=== PATIENT | female | born 1960 | race Caucasian/White ===

== ENCOUNTER 2024-06-22 17:39 | Emergency (ER) | payer OTHER, SELFPAY ==
[2024-06-22 17:39] VITALS: BMI 18.8
[2024-06-22 17:44] VITALS: BP 108/66
[2024-06-22 18:11] LABS: % Basophils 0.1 % (0-2); % Immature Granulocytes 0.7 % (0-0.5); % Monocytes 4.6 % (1.7-9.3); % Neutrophils 90.6 % (42.2-75.2); Absolute Immature Granulocytes 0.1 10^3/uL (0-0.05); Absolute Lymphocytes 0.7 10^3/uL (1.2-3.4); Absolute Monocytes 0.8 10^3/uL (0.1-0.6); Absolute Neutrophils 16.6 10^3/uL (1.4-6.5); Hematocrit 39.7 % (37.0-47.0); Hemoglobin 13.3 g/dL (12.0-16.0); Mean Corp Hgb Conc. 33.5 g/dL (33.0-37.0); Mean Corpuscular Hgb 27.1 pg (27.0-31.0); Mean Platelet Volume 9.9 fL (7.4-10.4); Nucleated Red Blood Cells % 0 %; Platelet Count 195 10^3/uL (130-400); Red Cell Dist. Width 12.7 % (11.5-14.5); White Blood Cell Count 18.4 10^3/uL (4.8-10.8)
[2024-06-22 18:36] LABS: ALT (SGPT) 17 U/L (0-35); AST (SGOT) 22 U/L (14-36); Acetaminophen < 10 ug/ml (10-30); Albumin 4.4 g/dl (3.5-5.0); Alkaline Phosphatase 60 U/L (38-126); Blood Urea Nitrogen 19 mg/dl (7-17); Calcium 8.7 mg/dl (8.4-10.2); Carbon Dioxide 26 mmol/L (22-30); Chloride 100 mmol/L (98-107); Glucose 132 mg/dl (70-99); Potassium 4.1 mmol/L (3.5-5.1); Sodium 138 mmol/L (135-145); Total Bilirubin 0.8 mg/dl (0.2-1.3); Total Protein 6.9 g/dl (6.3-8.2); eGFR > 60.00
[2024-06-22 19:25] LABS: COVID-19 Antigen Negative (Negative)
--- NOTE | 2024-06-22 20:16 | ED.GENMED ---
History of Present Illness
General
Chief Complaint: Change in Mental Status
Source: patient
Exam Limitations: none
Time Seen by Provider: 06/22/24 20:08
History of Present Illness
History of Present Illness:
See MDM
Past History
Past History
ED Past Medical History: Asthma (PAT), COPD and Other (Diverticulitis)
ED Past Surgical History: Other (Breast augmentation)
Social History
Tobacco: Smoker
Alcohol: Occasional
Personal:
Living: with family
Employment: Employed
Family History
Family History: Other (Noncontributory)
Phy Exam
Physical Exam
Physical Exam:
See MDM
Course
Orders/Labs/Results
Orders:
Orders
06/22/24 17:55
COVID-19 Antigen Urgent
Source: Nasal Swab
Complete Blood Count/With Diff Urgent
Comprehensive Metabolic Panel Urgent
Tylenol [Acetaminophen] Urgent
Influenza A+B Rapid Molecular Urgent
MELLISSA Source: Nasal Swab
Specimen Description:
06/22/24 20:15
0.9% Sodium Chloride 1000 ml [Nss] 1,000 ml IV BOLUS
Ketorolac [Toradol] 30 mg IV NOW STA
06/22/24 20:16
CR Chest Portable - 1 View Urgent
Comment:
Reason For Exam: SOB, cough
Reason Study Needs to be Portable: Unable to Transport
06/22/24 21:07
Urinalysis Reflex To Culture Urgent
Date Specimen was Collected: 06/22/24
Time Specimen was Collected: 21:05
Urine Microscopic Reflex Cult Urgent
06/22/24 21:52
Doxycycline [Vibramycin] 100 mg PO NOW STA
Abnormal Lab Results
06/22/24 06/22/24
17:55 21:07
WBC 18.4 H 10^3/uL
(4.8-10.8)
Abs Immat Gran (auto) 0.1 H 10^3/uL
(0-0.05)
Absolute Neuts (auto) 16.6 H 10^3/uL
(1.4-6.5)
Absolute Lymphs (auto) 0.7 L 10^3/uL
(1.2-3.4)
Absolute Monos (auto) 0.8 H 10^3/uL
(0.1-0.6)
Immature Gran % 0.7 H %
(0-0.5)
Neutrophils % 90.6 H %
(42.2-75.2)
Lymphocytes % 4.0 L %
(20.5-51.1)
BUN 19 H mg/dl
(7-17)
Glucose 132 H mg/dl
(70-99)
Urine Ketones Trace A
(Negative)
Ur Occult Blood Reflex 1+ A
(Negative)
Urine Bilirubin 1+ A
(Negative)
Leukocyte Esterase Rfl Trace A
(Negative)
Urine RBC 3-6 A /HPF
(0-2)
Urine Bacteria (Reflex) Few A
(Negative)
Urine Albumin (Reflex) 1+ A
(Neg - Trace)
Acetaminophen < 10 L ug/ml
(10-30)
06/22/24 17:55
06/22/24 17:55
Vital Signs
Initial and Last Documented VS:
Initial Vital Signs
Temp Pulse Resp BP Pulse Ox
99.2 F 118 20 108/66 100
06/22/24 17:44 06/22/24 17:44 06/22/24 17:44 06/22/24 17:44 06/22/24 17:44
Last Documented Vital Signs
Temp Pulse Resp BP Pulse Ox
99.2 F 118 20 111/62 97
06/22/24 17:44 06/22/24 17:44 06/22/24 17:44 06/22/24 21:00 06/22/24 21:02
MDM/Problems Addressed
Differential Diagnosis Includes:
HPI and MDM Narrative:
64-year-old female presenting for evaluation of cough and congestion. Patient is on her second course of antibiotics. Symptoms have been ongoing for the past week or so. She has been around sick children. Blood work was performed prior to my
evaluation and patient found to have a leukocytosis and nasal swab was positive for influenza. She is out of the Tamiflu window. Family also stating that she has been intermittently confused and curious about a possible UTI as well. Patient is
clinically dry. Will give IV fluids and obtain urinalysis
Physical exam
General: Well appearing and non-toxic
HEENT: protecting airway. Dry mucous membrane
Neck: appears supple
CV: No evidence of cyanosis. Regular rate and rhythm
Resp: No accessory muscle use. Lungs clear
Abd: Non-distended
Extremities: No deformities
Neuro: alert
Psych: Normal affect
Skin: Intact
Problems Addressed including Acute and Chronic Conditions affecting care:
1. Influenza
Acuity: acute
Prognosis: stable
Details: Discussed symptomatic care. She is out of Tamiflu window
2. Dehydration
Acuity: acute
Prognosis: stable
Details: Will give IV fluids
Updates
Chest x-ray concerning for pneumonia. On reassessment, patient feeling much better. Discussed continuing the azithromycin and will add Doxy
Differential Diagnosis (but not limited to): Bronchitis, pneumonia, influenza, COVID
Testing considered: Troponin
Drug therapy (if applicable): OTC meds, please see d/c instruction regarding Rx drugs
Amount and/or Complexity of Data Reviewed
Clinical info obtained from: Patient
External data reviewed: N/A
Labs I independently reviewed (but not limited to): Leukocytosis
Radiology: X-ray independently reviewed: Chest x-ray concerning for right upper lobe pneumonia
Pulse Ox: not hypoxic
EKG independently reviewed: N/A
Regulatory Process Manager: N/A
Critical Care: N/A
Risk of Complication:
Social Determinants of health: Good social support
Discussed with other providers: N/A
Escalation of Care includes Admit/Obs: After being observed in the Emergency Department, pt stable for discharge.
Occasional wrong word or 'sound a like' substitutions may have occurred due to the inherent limitations of voice recognition software. Read the chart carefully and recognize, using context, where substitutions have occurred.
*Critical Care Note
Total Time (30-74mins, 75-104mins- exclusive of procedures): Not Applicable
ED Attending Note
-
Portions of this chart may have been created with voice recognition software.� Occasional wrong word or��sound alike� substitutions may have occurred due to the inherent limitations of voice recognition software.
Discharge Plan
Departure
Patient Disposition: Home (Routine Discharge)
Date of Disposition: 06/22/24
Time of Disposition: 21:53
Patient with high blood pressure during this ER visit?: No
Discharge Problem:
PNA (pneumonia), Influenza A
Instructions: Pneumonia in adults
Prescriptions:
New
doxycycline hyclate 100 mg capsule
100 mg PO BID Qty: 14 0RF
No Action
fluticasone propion-salmeterol 1 DISK blister with device
1 puff inhalation QPM
albuterol sulfate 1 PUFF HFA aerosol inhaler
1 puff inhalation R Q4HPRN PRN (Reason: sob)
sumatriptan succinate 50 MG tablet
100 mg PO PRN PRN (Reason: migraine)
oxycodone-acetaminophen 1 EACH tablet
1 tab PO PRN PRN (Reason: pain)
dextroamphetamine-amphetamine [Adderall] 5 MG tablet
5 mg PO DAILYPRN PRN (Reason: adhd)
Referrals:
Jimbo Georges DO [Family Provider] -
Activity Restrictions/Additional Instructions:
Please return for any worsening symptoms.
You may return at any time if you have further concerns.
Please follow up with your doctor at the first available appointment, preferably this week.
Please continue your azithromycin. I am adding a second antibiotic called doxycycline.
Thank you for choosing [facility].
Interventions
Interventions:
*Risk Screen - Suicide Last Done: 06/22/24 17:44
*General Assessment Last Done: 06/22/24 17:44
*Neglect/Abuse Screening Last Done: 06/22/24 17:44
Discharge Date and Time
Print Language: OMANI
[2024-06-22 20:17] VITALS: BP 109/63
[2024-06-22] MEDS: NSS 1000 IV (20:27)
[2024-06-22] MEDS: TORADOL 30 MG IV (20:31)
[2024-06-22 21:00] VITALS: BP 111/62
[2024-06-22 21:15] LABS: Urine Albumin 1+ (Neg - Trace); Urine Bilirubin 1+ (Negative); Urine Character Clear (Clear); Urine Color Yellow; Urine Glucose Negative (Negative); Urine Ketone Trace (Negative); Urine Leukocyte Trace (Negative); Urine Nitrite Negative (Negative); Urine Occult Blood 1+ (Negative); Urine Specific Gravity 1.025 (<1.030); Urine Urobilinogen Negative (Neg - 1+)
[2024-06-22 21:42] LABS: Urine Bacteria Few (Negative); Urine Mucus Moderate
[2024-06-22 22:00] VITALS: BP 110/60
[2024-06-22] MEDS: VIBRAMYCIN 100 MG PO (22:01)
== END 2024-06-22 22:16 | disposition home or self-care (01) ==
LOC: EMR 17:39
PROVIDERS: Emergency Medicine; EMERGENCY PHYSICIAN Student in an Organized Health Care Education/Training Program; FAMILY PHYSICIAN Family Medicine
DX: J10.00 Influenza due to other identified influenza virus with unspecified type of pneumonia (principal); E86.0 Dehydration; F17.200 Nicotine dependence, unspecified, uncomplicated; J44.89 Other specified chronic obstructive pulmonary disease
CPT/HCPCS: 96374; 96361; 99284; 71045; 80053; 80143; 81003; 81015; 85025; 87502; 87811